=== PATIENT | female | born 1995 | race Caucasian/White ===

== ENCOUNTER 2017-10-30 06:47 | Day surgery (SDC) | payer OTHER ==
[2017-10-30] MEDS ORDERED: LIDOCAINE 4% SOLUTION 50 ML BTL (08:24)
[2017-10-30] MEDS ORDERED: FENTAnyl 50 MCG/ML VIAL (09:11)
[2017-10-30] MEDS ORDERED: MIDAZOLAM 1 MG/ML 2 ML INJ ×3 (09:11)
== END 2017-10-30 12:08 | disposition home or self-care (01) ==
LOC: GIL 06:47
DX: K21.0 Gastro-esophageal reflux disease with esophagitis (principal); K29.60 Other gastritis without bleeding
CPT/HCPCS: 43239; 84703; 88305; 88312; 88313